=== PATIENT | male | born 2000 | race Caucasian/White ===

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

== ENCOUNTER 2018-11-10 11:36 | Emergency (ER) | payer OTHER ==
[~2018-11-10] VITALS: Ht 165.1 cm; Wt 61.0 kg
[2018-11-10] MEDS ORDERED: SODIUM CHLORIDE 3% 500ML IV SOLN IV ONE (12:30)
[2018-11-10] MEDS ORDERED: ACETAMINOPHEN 650MG/20.3ML UDC PO ONE (12:30)
[2018-11-10] MEDS ORDERED: VALPROATE SODIUM 500 MG in SODIUM CHLORIDE 0.9% 100 ML IV SCH (12:30)
[2018-11-10] MEDS ORDERED: SODIUM CHLORIDE 3% 500 ML IV NR (12:30)
[2018-11-10] MEDS ORDERED: LEVETIRACETAM 500MG PREMIX 100 ML IV ONE ×3 (12:30→18:45)
[2018-11-10] MEDS ORDERED: LORAZEPAM 2MG/ML CPJ ONE ×2 (12:33→12:50)
[2018-11-10 13:00] LABS: BASOPHILS % 0.4 % (0.0-2.0); EOSINOPHILS % 0.1 % (0.0-5.0); HEMATOCRIT. 38.2 % (42.0-52.0); HEMOGLOBIN. 13.4 g/dL (14.0-18.0); LYMPHOCYTES % 9.3 % (20.0-50.0); MEAN CORPUSCULAR HEMOGLOBIN 30.9 pg (28.0-32.0); MEAN PLATELET VOLUME 6.7 fl (7.4-10.4); NEUTROPHILS % 83.2 % (40.0-76.0); PLATELET 265 x1000/uL (130-400); RED BLOOD CELL COUNT 4.34 mill/uL (4.7-6.1); RED CELL DISTRIBUTION WIDTH 13.6 % (11.6-14.6)
[2018-11-10] MEDS ORDERED: SODIUM CHLORIDE 3% 120 ML IV NR (13:00)
[2018-11-10 14:25] LABS: CHLORIDE 98 mEq/L (98-107)
[2018-11-10] MEDS ORDERED: CEFTRIAXONE 1 G PREMIX 50 ML IV ONE (14:45)
[2018-11-10] MEDS ORDERED: LORAZEPAM 2MG/ML CPJ IV ONE (15:15)
[2018-11-10] MEDS ORDERED: ACETAMINOPHEN 650MG SUPP PR ONE (15:15)
[2018-11-10] MEDS ORDERED: VALPROATE SODIUM 500 MG in DEXT 5% WATER 100 ML IV ONE (18:45)
[2018-11-10 21:50] LABS: CLARITY URINE CLEAR (CLEAR); COLOR URINE YELLOW (YELLOW); KETONES URINE 1+ (NEGATIVE); LEUKOCYTE ESTERASE URINE NEGATIVE (NEGATIVE); NITRITE URINE NEGATIVE (NEGATIVE); OCCULT BLOOD URINE NEGATIVE (NEGATIVE); PH URINE 6.5 (4.5-8.0); PROTEIN URINE NEGATIVE (NEGATIVE); SPECIFIC GRAVITY URINE 1.015 (1.005-1.030); UROBILINOGEN URINE 0.2 E.U./dL (0.2-1.0)
[2018-11-10 22:35] VITALS: BP 114/72
== END 2018-11-10 23:00 | disposition short-term general hospital (02) ==
LOC: ER 11:37
DX: G40.901 Epilepsy, unspecified, not intractable, with status epilepticus (principal); R50.9 Fever, unspecified; E87.1 Hypo-osmolality and hyponatremia; Q87.3 Congenital malformation syndromes involving early overgrowth; F81.9 Developmental disorder of scholastic skills, unspecified
CPT/HCPCS: 36415; 71045; 80048; 80165; 81003; 84145; 84295; 85025; 87040; 87086; 96365; 96366; 96367; 96368; 96375; 99291; J0696; J1953; J2060; J3490; J7050; J7060

== ENCOUNTER 2020-01-17 11:20 | Emergency (ER) | payer MEDICAID, OTHER ==
[~2020-01-17] VITALS: Ht 172.7 cm; Wt 64.0 kg
[2020-01-17 12:52] LABS: BASOPHILS % 0.3 % (0.0-2.0); EOSINOPHILS % 1.8 % (0.0-5.0); HEMATOCRIT. 37.4 % (42.0-52.0); HEMOGLOBIN. 13.1 g/dL (14.0-18.0); LYMPHOCYTES % 13.6 % (20.0-50.0); MEAN CORPUSCULAR HEMOGLOBIN 30.8 pg (28.0-32.0); MEAN CORPUSCULAR VOLUME 87.8 fL (80.0-94.0); MONOCYTES % 10.9 % (2.0-8.0); NEUTROPHILS % 73.4 % (40.0-76.0); PLATELET 267 x1000/uL (130-400); RED BLOOD CELL COUNT 4.26 mill/uL (4.7-6.1); RED CELL DISTRIBUTION WIDTH 12.6 % (11.6-14.6)
[2020-01-17 12:53] LABS: CLARITY URINE TURBID (CLEAR); COLOR URINE YELLOW (YELLOW); KETONES URINE TRACE (NEGATIVE); LEUKOCYTE ESTERASE URINE NEGATIVE (NEGATIVE); NITRITE URINE NEGATIVE (NEGATIVE); OCCULT BLOOD URINE NEGATIVE (NEGATIVE); PROTEIN URINE TRACE (NEGATIVE); UROBILINOGEN URINE 0.2 E.U./dL (0.2-1.0)
[2020-01-17 13:06] LABS: CHLORIDE 97 mEq/L (98-107)
[2020-01-17 13:10] LABS: ETHANOL BLOOD < 10 mg/dL
[2020-01-17 13:17] LABS: *AMPHETAMINES SCREEN URINE NEGATIVE (NEGATIVE); *BARBITURATES SCREEN URINE NEGATIVE (NEGATIVE); *BENZODIAZEPINES SCREEN URINE PRESUMTIVE POSITIVE (NEGATIVE); *COCAINE SCREEN URINE NEGATIVE (NEGATIVE)
[2020-01-17 13:18] LABS: CANNABINOID URINE SCREEN NEGATIVE (NEGATIVE); METHADONE URINE SCREEN NEGATIVE (NEGATIVE); OPIATES URINE SCREEN NEGATIVE (NEGATIVE); PHENCYCLIDINE URINE SCREEN NEGATIVE (NEGATIVE)
[2020-01-17] MEDS ORDERED: CEFTRIAXONE 1 G PREMIX 50 ML IV ONE (17:00)
[2020-01-17 17:35] VITALS: BP 119/78
== END 2020-01-17 18:18 | disposition home or self-care (01) ==
LOC: ER 11:26
DX: R56.9 Unspecified convulsions (principal); Z98.890 Other specified postprocedural states; Z79.899 Other long term (current) drug therapy
CPT/HCPCS: 36415; 80053; 80305; 80320; 81003; 85025; 87086; 93005; 96365; 99285; J0696; Z7610; G0480

== ENCOUNTER 2022-02-26 18:03 | Inpatient (IN) | payer MEDICARE, MEDICAID ==
[~2022-02-26] VITALS: Ht 175.3 cm; Wt 72.8 kg
[2022-02-26] MEDS ORDERED: TETANUS, DIPHTHERIA, PERTUSSIS VAC/PF 0.5ML (>10YR OLD) IM ONE (19:00)
[2022-02-26] MEDS ORDERED: LIDOCAINE HCL/PF 1% 10 MG/ML 5ML VIAL INFIL ONE (19:00)
[2022-02-26] MEDS ORDERED: LIDOCAINE HCL/EPINEPHRINE 1%-EPI 1:100,000 20 ML VIAL INFIL ONE (19:00)
[2022-02-26] MEDS ORDERED: SODIUM CHLORIDE 0.9% 1,000 ML IV ONE (19:00)
[2022-02-26 19:03] LABS: BASOPHILS % 0.7 % (0.0-2.0); EOSINOPHILS % 5.7 % (0.0-5.0); HEMATOCRIT. 36.3 % (42.0-52.0); HEMOGLOBIN. 12.8 g/dL (14.0-18.0); LYMPHOCYTES % 41.6 % (20.0-50.0); MEAN CORPUSCULAR HEMOGLOBIN 31.7 pg (28.0-32.0); MEAN PLATELET VOLUME 6.9 fl (7.4-10.4); MONOCYTES % 11.5 % (2.0-8.0); NEUTROPHILS % 40.5 % (40.0-76.0); PLATELET 234 x1000/uL (130-400); RED BLOOD CELL COUNT 4.03 mill/uL (4.7-6.1)
[2022-02-26 19:12] LABS: CHLORIDE 94 mEq/L (98-107)
[2022-02-26] MEDS ORDERED: MIDAZOLAM HCL 2 MG/2 ML VIAL IV ONE (19:30)
[2022-02-26] MEDS ORDERED: LEVETIRACETAM 500MG PREMIX 100 ML IV ONE (19:30)
[2022-02-26] MEDS ORDERED: LORAZEPAM 2MG/ML CPJ IV ONE (20:15)
[2022-02-27 04:00] VITALS: BP 125/49
[2022-02-27] MEDS ORDERED: LEVETIRACETAM 1000MG PREMIX 100 ML IV NR (04:00)
[2022-02-27] MEDS ORDERED: ONDANSETRON HCL 4MG/2ML INJ IV PRN (08:30)
[2022-02-27] MEDS ORDERED: ACETAMINOPHEN 325MG TABLET PO PRN (08:30)
[2022-02-27 10:05] VITALS: BP 127/89
[2022-02-27] MEDS ORDERED: LACO200T2 PO (10:59)
[2022-02-27] MEDS ORDERED: DEXTL MT (10:59)
[2022-02-27] MEDS ORDERED: CLON0.5T23 PO (10:59)
[2022-02-27 12:00] VITALS: BP 122/76
[2022-02-27 16:00] VITALS: BP 125/49
[2022-02-27 20:00] VITALS: BP 129/85
[2022-02-27] MEDS ORDERED: VALPROATE SODIUM 250MG/5ML UDC PO SCH ×2 (21:00→21:06)
[2022-02-27] MEDS ORDERED: DIVALPROEX SODIUM 500MG DR TABLET PO SCH (21:00)
[2022-02-27] MEDS: LEVETIRACETAM 500MG TABLET PO SCH (21:01)
[2022-02-27] MEDS: LACOSAMIDE 100 MG TABLET PO SCH (21:43)
[2022-02-28] VITALS: BP 111/80
[2022-02-28 08:00] VITALS: BP 128/70
[2022-02-28] MEDS ORDERED: INFLUENZA VACCINE 05/PF 0.5 ML SYRINGE IM ONE (09:00)
[2022-02-28] MEDS ORDERED: PNEUMOCOCCAL 23-VAL P-SAC VAC 0.5 ML IM ONE (09:00)
[2022-02-28] MEDS: LACOSAMIDE 100 MG TABLET PO SCH ×2 (09:30→17:34)
[2022-02-28] MEDS: LEVETIRACETAM 500MG TABLET PO SCH ×2 (09:30→20:32)
[2022-02-28 12:00] VITALS: BP 110/76
[2022-02-28] MEDS ORDERED: DIVALPROEX SODIUM 500MG DR TABLET PO SCH (12:00)
[2022-02-28 14:21] VITALS: BP 110/76
[2022-02-28 15:16] LABS: BASOPHILS % 0.2 % (0.0-2.0); EOSINOPHILS % 2.6 % (0.0-5.0); HEMATOCRIT. 37.7 % (42.0-52.0); HEMOGLOBIN. 13.2 g/dL (14.0-18.0); LYMPHOCYTES % 27.6 % (20.0-50.0); MEAN CORPUSCULAR HEMOGLOBIN 31.7 pg (28.0-32.0); MEAN CORPUSCULAR VOLUME 90.6 fL (80.0-94.0); MEAN PLATELET VOLUME 7.1 fl (7.4-10.4); MONOCYTES % 12.8 % (2.0-8.0); NEUTROPHILS % 56.8 % (40.0-76.0); PLATELET 258 x1000/uL (130-400); RED BLOOD CELL COUNT 4.16 mill/uL (4.7-6.1); RED CELL DISTRIBUTION WIDTH 13.1 % (11.6-14.6)
[2022-02-28 15:20] LABS: CHLORIDE 101 mEq/L (98-107)
[2022-02-28 16:00] VITALS: BP 125/83
[2022-02-28 20:00] VITALS: BP 136/89
[2022-02-28] MEDS: LORAZEPAM 2MG/ML CPJ IV PRN (20:10)
[2022-02-28] MEDS: VALPROIC ACID 250MG CAPSULE PO SCH (20:32)
[2022-03-01] VITALS (7 sets, daily range): BP systolic 104–147; BP diastolic 62–102
[2022-03-01] MEDS: LORAZEPAM 2MG/ML CPJ IV PRN (04:48)
[2022-03-01] MEDS: VALPROIC ACID 250MG CAPSULE PO SCH ×2 (09:08→17:21)
[2022-03-01] MEDS: LACOSAMIDE 100 MG TABLET PO SCH ×2 (09:08→17:21)
[2022-03-01] MEDS: LEVETIRACETAM 500MG TABLET PO SCH ×2 (09:09→21:03)
[2022-03-01] MEDS ORDERED: VALP250C3 PO (10:08)
[2022-03-01] MEDS: DOCUSATE SODIUM 250MG CAPSULE PO PRN (22:52)
[2022-03-02] VITALS: BP 137/91
[2022-03-02] MEDS: LORAZEPAM 2MG/ML CPJ IV PRN (01:29)
[2022-03-02 04:00] VITALS: BP 102/56
[2022-03-02 08:00] VITALS: BP 129/88
[2022-03-02] MEDS: VALPROIC ACID 250MG CAPSULE PO SCH (08:46)
[2022-03-02] MEDS: LEVETIRACETAM 500MG TABLET PO SCH (08:46)
[2022-03-02] MEDS: LACOSAMIDE 100 MG TABLET PO SCH (08:46)
[2022-03-02] MEDS: DOCUSATE SODIUM 250MG CAPSULE PO PRN (10:48)
[2022-03-02 12:00] VITALS: BP 125/78
== END 2022-03-02 14:45 | disposition home or self-care (01) | DRG 100 ==
LOC: ER 18:03 → MICUSO 21:43 → 7EST 02-27 08:55
PROVIDERS: ADMIT Internal Medicine; ATTEND Internal Medicine
PROC: 0HQ0XZZ Repair Scalp Skin, External Approach (ICD-10-PCS; principal; 2022-02-26)
PROC: 4A00X4Z Measurement of Central Nervous Electrical Activity, External Approach (ICD-10-PCS; 2022-02-28)
DX: G40.919 Epilepsy, unspecified, intractable, without status epilepticus (principal); G92.8 Other toxic encephalopathy; E87.1 Hypo-osmolality and hyponatremia; F72 Severe intellectual disabilities; S01.81XA Laceration without foreign body of other part of head, initial encounter; D64.9 Anemia, unspecified; Z20.822 Contact with and (suspected) exposure to COVID-19; D72.819 Decreased white blood cell count, unspecified; W18.30XA Fall on same level, unspecified, initial encounter; R62.50 Unspecified lack of expected normal physiological development in childhood; Z79.899 Other long term (current) drug therapy; Z78.1 Physical restraint status; Y93.89 Activity, other specified; Y92.89 Other specified places as the place of occurrence of the external cause; Y99.8 Other external cause status
CPT/HCPCS: 36415; 80048; 80053; 80165; 80339; 82308; 83735; 85025; 90686; 90715; 90732; 93005; 95816; 99285; J1953; J2060; J2250; J7030